=== PATIENT | female | born 1985 | race Hispanic/Latino ===

== ENCOUNTER 2023-12-29 14:55 | Emergency (ER) | payer OTHER ==
[~2023-12-29] VITALS: Ht 149.9 cm; Wt 44.5 kg
[2023-12-29 16:13] LABS: SARS-CoV-2, RNA, NAAT NEGATIVE SARS CoV-2 (NEGATIVE)
[2023-12-29 16:16] LABS: RAPID GROUP A STREP negative (NEGATIVE)
[2023-12-29 16:26] LABS: INFLUENZA TYPE B Negative For Type B (NEGATIVE)
[2023-12-29 16:41] LABS: INFLUENZA TYPE A Positive For Type A (NEGATIVE)
[2023-12-29 17:02] VITALS: TEMP 100.9
[2023-12-29] MEDS: ACETAMINOPHEN 325 MG TAB PO ONE (17:02)
[2023-12-29 17:20] LABS: HEMATOCRIT 40.6 % (36-48); MEAN CORPUSCULAR HGB CONC 32.8 g/dL (32.0-36.0); MEAN CORPUSCULAR VOLUME 94.6 fL (79-99); RED BLOOD CELL COUNT(AUTO) 4.29 MIL/uL (4.00-5.50); RED CELL DISTRIBUTION WIDTH 12.5 % (11.0-15.5)
[2023-12-29 17:38] LABS: CREATININE 0.5 mg/dL (0.5-1.5); POTASSIUM 3.3 mmol/L (3.5-5.1)
[2023-12-29 17:45] VITALS: BP 101/72; PULSE 105; RESP 16; O2SAT 98
== END 2023-12-29 20:44 | disposition left against medical advice (07) ==
LOC: EDH 14:55
DX: R09.89 Other specified symptoms and signs involving the circulatory and respiratory systems (principal); Z20.822 Contact with and (suspected) exposure to COVID-19; Z53.21 Procedure and treatment not carried out due to patient leaving prior to being seen by health care provider
CPT/HCPCS: 36415; 80048; 83605; 85027; 87040; 87635; 87804; 87880; 99281